=== PATIENT | male | born 1965 | race Two or more races ===

== ENCOUNTER 2022-08-05 09:42 | Outpatient (REF) | payer OTHER, SELFPAY ==
[2022-08-05 11:10] LABS: Anion Gap 9 (12-20); Blood Urea Nitrogen 14 mg/dL (9-16); Carbon Dioxide 30 mmol/L (22-29); Chloride 106 mmol/L (96-108); Estimated Glomerular Filt Rate > 60; Glucose Random 91 mg/dL (60-115); Potassium 4.2 mmol/L (3.3-5.1); Sodium 141 mmol/L (135-145)
[2022-08-05 11:32] LABS: Vitamin B12 552 pg/mL (200-900)
[2022-08-07 01:23] LABS: Lyme Abs Screen <0.90 index
[2022-08-07 15:48] LABS: IgA 236 mg/dL (47-310); IgG 1515 mg/dL (600-1640); IgM 125 mg/dL (50-300)
== END 2022-08-05 09:43 | disposition home or self-care (01) ==
LOC: HO.LAB 09:42
PROVIDERS: Visit Provider Psychiatry & Neurology Neurology
DX: G31.84 Mild cognitive impairment of uncertain or unknown etiology (principal)
CPT/HCPCS: 36415; 80048; 82607; 82784; 86334; 86617; 86618